=== PATIENT | female | born 1965 | race Caucasian/White ===

== ENCOUNTER → 2016-10-10 | Outpatient (CLI) | payer MEDICAID ==
[2016-10-15 14:41] LABS: Hepatitis C Genotype 3 (.)
== END ==
LOC: CARL-LAB 08:51
PROVIDERS: Physician Assistant Medical
DX: R74.0 Nonspecific elevation of levels of transaminase and lactic acid dehydrogenase [LDH] (principal); R76.8 Other specified abnormal immunological findings in serum